=== PATIENT | male | born 1950 | race Caucasian/White ===

== ENCOUNTER → 2021-12-07 | Day surgery (SDC) | payer OTHER, MEDICARE ==
[~2021-12-07] VITALS: Ht 193 cm; Wt 95.2 kg
[~2021-12-07] MED LIST: AMLODIPINE BESY10 MG PO; ASCORBIC ACID500 MG PO; ASPIRIN EC81 MG PO; BRILINTA60 MG PO; COREG 6.25MG6.25 MG PO; JARDIANCE25 MG PO; LISINOPRIL40 MG PO; LOVAZA1 GM PO; SILDENAFIL CIT100 MG PO; VITAMIN D21250 MCG PO; ZETIA10 MG PO
== END | disposition home or self-care (01) ==
LOC: FAS 09:45
DX: Z12.11 Encounter for screening for malignant neoplasm of colon (principal); D12.3 Benign neoplasm of transverse colon; K62.1 Rectal polyp; E11.9 Type 2 diabetes mellitus without complications; I25.10 Atherosclerotic heart disease of native coronary artery without angina pectoris; E78.5 Hyperlipidemia, unspecified; I10 Essential (primary) hypertension; Z95.5 Presence of coronary angioplasty implant and graft; Z88.0 Allergy status to penicillin; Z87.891 Personal history of nicotine dependence; Z79.82 Long term (current) use of aspirin
CPT/HCPCS: J2704; J7120